=== PATIENT | male | born 1995 | race Caucasian/White ===

== ENCOUNTER 2021-08-22 12:54 | Emergency (ER) | payer MEDICAID ==
[~2021-08-22] VITALS: Ht 188 cm; Wt 70.3 kg
--- NOTE | 2021-08-23 08:59 | EKG ---
[facility] [address] [place], [place] [address] Signed Normal sinus rhythm Normal ECG No previous ECGs available Confirmed by CHRISTIAN CORTEZ MD ([id number] on 08/23/2021 8:58:55 AM Electronically Signed By: CHRISTIAN CORTEZ MD 08/23/21 0859 PATIENT NAME: SEBASTIAN OSORIO Electrocardiogram DATE OF : [birth year] PHYSICIAN: CHRISTIAN CORTEZ MD REPORT #: [id number] REPORT IS CONFIDENTIAL AND NOT TO BE RELEASED WITHOUT AUTHORIZATION
== END 2021-08-22 16:58 | disposition home or self-care (01) ==
LOC: ED 12:54
DX: R07.89 Other chest pain (principal)
CPT/HCPCS: 36415; 71045; 80053; 84484; 85025; 93005; 93010; 99285-25